=== PATIENT | female | born 1950 | race Caucasian/White ===

== ENCOUNTER → 2023-11-26 11:20 | Outpatient (REF) | payer OTHER, SELFPAY | LOC: HWRAD 11:20 | PROVIDERS: ATTENDING PHYSICIAN Nurse Practitioner | DX: Z13.820 Encounter for screening for osteoporosis (principal); Z12.31 Encounter for screening mammogram for malignant neoplasm of breast | CPT/HCPCS: 77063; 77067; 77080 ==

== ENCOUNTER → 2024-12-28 07:54 | Outpatient (REF) | payer OTHER, SELFPAY | LOC: HWWDC 07:54 | PROVIDERS: ATTENDING PHYSICIAN Nurse Practitioner | DX: Z13.21 Encounter for screening for nutritional disorder (principal) | CPT/HCPCS: 77063; 77067 ==